=== PATIENT | female | born 1975 | race Caucasian/White ===

== ENCOUNTER 2019-08-11 14:36 | Emergency (ER) | payer OTHER ==
[~2019-08-11] VITALS: Ht 157.5 cm; Wt 65.3 kg
[2019-08-11 15:16] VITALS: BP 159/85
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
--- NOTE | 2019-08-11 18:36 | NUR ---
PT TAKEN TO BED 11.
[2019-08-11] MEDS ORDERED: KETOROLAC 30 MG/ML VIAL IM ONE (19:20)
--- NOTE | 2019-08-11 19:20 | NUR ---
RECEIVED REPORT FROM ROSEANN ROSE. TRANSFER OF CARE AT THIS TIME. ASSESSMENT COMPLETED. PT SITTING ON EDGE OF BED WITH DAUGHTERS. NO S/SX DISTRESS AT THIS TIME.
--- NOTE | 2019-08-11 19:24 | NUR ---
DR. PEREZ RE EVAL AT BEDSIDE.
--- NOTE | 2019-08-11 19:26 | NUR ---
PT REFUSED 30 MG IM TORADOL FOR PAIN. 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 EDUCATED PT THAT TORADOL DOES NOT CAUSE ANY SUCH SIDE EFFECTS THAT WOULD AFFECT ABILITY TO DRIVE. PT INSISTS THAT SHE DOESN'T WANT TO TAKE MEDICATION WHILE DRIVING.
--- NOTE | 2019-08-11 19:35 | NUR ---
TAKEN TO XRAY VIA WC.
[2019-08-11 20:46] VITALS: BP 156/94
--- NOTE | 2019-08-11 20:46 | NUR ---
Patient discharged with v/s stable. Written and verbal after care instructions given and explained. Patient alert, oriented and verbalized understanding of instructions. Ambulatory with steady gait. All questions addressed prior to discharge. ID band removed. Patient advised to follow up with PMD. Rx of Flexeril and Ibuprofen given. Patient educated on indication of medication including possible reaction and side effects. Opportunity to ask questions provided and answered.
== END 2019-08-11 20:46 | disposition home or self-care (01) ==
LOC: MED 14:36
DX: S16.1XXA Strain of muscle, fascia and tendon at neck level, initial encounter (principal); S39.012A Strain of muscle, fascia and tendon of lower back, initial encounter; M25.531 Pain in right wrist; I10 Essential (primary) hypertension; V89.2XXA Person injured in unspecified motor-vehicle accident, traffic, initial encounter; Y93.89 Activity, other specified; Y92.89 Other specified places as the place of occurrence of the external cause; Y99.8 Other external cause status
CPT/HCPCS: 71046; 72110; 99283; J1885